=== PATIENT | female | born 1990 | race African-American/Black ===

== ENCOUNTER 2017-08-14 13:48 | Emergency (ER) | payer SELFPAY ==
[2017-08-14 14:03] VITALS: BP 128/65
[2017-08-14] MEDS ORDERED: PENICILLIN V POTASSIUM 500 MG TABLET PO ONE (14:57)
[2017-08-14] MEDS ORDERED: ACETAMINOPHEN WITH CODEINE #3 TABLET PO ONE (14:57)
--- NOTE | 2017-08-14 14:59 | ER Document Report ---
HPI - HPI Patient complains to provider of: Dental pain Onset: Other - 10 days Onset/Duration: Persistent Quality of pain: Achy Pain Level: 4 Context: Patient complains of dental pain for the past 10 days. Patient denies any fever or facial swelling. Associated Symptoms: Other - Dental pain. denies: Fever Exacerbated by: Denies Relieved by: Denies Similar symptoms previously: Yes Recently seen / treated by doctor: No - ROS ROS below otherwise negative: Yes Systems Reviewed and Negative: Yes All other systems reviewed and negative - CONSTITUTIONAL Constitutional: DENIES: Fever - EENT Notes: dental pain - NEURO Neurology: DENIES: Weakness - GASTROINTESTINAL Gastrointestinal: DENIES: Nausea, Patient vomiting - MUSCULOSKELETAL Musculoskeletal: DENIES: Neck Pain - DERM Skin Color: Normal Skin Problems: None Past Medical History - General Information source: Patient - Social History Smoking Status: Never Smoker Frequency of alcohol use: None Drug Abuse: None Occupation: for; to [employer] Family History: Reviewed & Not Pertinent - Medical History Medical History: Negative - Past Medical History Cardiac Medical History: Denies: Hx DVT, Hx Hypertension, Hx Pulmonary Embolism Pulmonary Medical History: Denies: Hx Asthma, Hx Bronchitis Neurological Medical History: Denies: Hx Cerebrovascular Accident, Hx Migraine Endocrine Medical History: Denies: Hx Diabetes Mellitus Type 1, Hx Hypothyroidism Renal/ Medical History: Denies: Hx Pelvic Inflammatory Disease, Hx Renal Insufficiency GI Medical History: Denies: Hx Gastritis, Hx Gastroesophageal Reflux Disease Musculoskeltal Medical History: Denies Hx Gout Skin Medical History: Denies Hx Cellulitis, Denies Hx MRSA Surgical Hx: Negative - Immunizations Hx Diphtheria, Pertussis, Tetanus Vaccination: Yes Vertical Provider Document - CONSTITUTIONAL Agree With Documented VS: Yes Exam Limitations: No Limitations General Appearance: WD/WN, No Apparent Distress - INFECTION CONTROL TRAVEL OUTSIDE OF THE [place] IN LAST 30 DAYS: No - HEENT HEENT: Atraumatic, Normocephalic Mouth Diagram: 1 - dental fracture, tenderness, no abscess, no trismus - NECK Neck: Normal Inspection, Supple. negative: Lymphadenopathy-Left, Lymphadenopathy-Right - RESPIRATORY Respiratory: Breath Sounds Normal, No Respiratory Distress O2 Sat by Pulse Oximetry: 100 - CARDIOVASCULAR Cardiovascular: Regular Rate, Regular Rhythm, No Murmur - BACK Back: Normal Inspection - MUSCULOSKELETAL/EXTREMETIES Musculoskeletal/Extremeties: MAEW - NEURO Level of Consciousness: Awake, Alert, Appropriate Motor/Sensory: No Motor Deficit - DERM Integumentary: Warm, Dry, No Rash Course - Vital Signs Vital signs: Temp Pulse Resp BP Pulse Ox 98.7 F 67 20 128/65 H 100 08/14/17 13:58 08/14/17 13:58 08/14/17 13:58 08/14/17 13:58 08/14/17 13:58 Discharge - Discharge Clinical Impression: Toothache Condition: Stable Disposition: HOME, SELF-CARE Instructions: Dentist, Oral Narcotic Medication ([facility]), Penicillin V K ([facility]), Toothache ([facility]) Additional Instructions: Return immediately for any new or worsening symptoms Followup with your dental care provider, call tomorrow to make a followup appointment Referrals: [facility] [Provider Group] - Follow up tomorrow
== END 2017-08-14 15:18 | disposition home or self-care (01) ==
LOC: ER 13:48
DX: K08.89 Other specified disorders of teeth and supporting structures (principal)
CPT/HCPCS: 99282

== ENCOUNTER 2017-12-31 00:33 | Emergency (ER) | payer SELFPAY ==
[2017-12-31 01:46] LABS: APPEARANCE,URINE CLEAR; BILIRUBIN,URINE NEGATIVE (NEGATIVE); COLOR,URINE STRAW; GLUCOSE, URINE NEGATIVE (NEGATIVE); KETONES,URINE NEGATIVE (NEGATIVE); LEUKOCYTE ESTERASE,URINE LARGE (NEGATIVE); NITRITE,URINE NEGATIVE (NEGATIVE); PROTEIN,URINE NEGATIVE (NEGATIVE); URINE SPECIFIC GRAVITY 1.003; UROBILINOGEN,URINE NEGATIVE mg/dL (<2.0)
[2017-12-31] MEDS ORDERED: AZITHROMYCIN 1 GM SUSP PACKET PO ONE (02:06)
[2017-12-31] MEDS ORDERED: ONDANSETRON 4 MG TAB.RAPDIS PO ONE (02:06)
[2017-12-31] MEDS ORDERED: CEFTRIAXONE INJ 250 MG VIAL IM ONE (02:07)
--- NOTE | 2017-12-31 02:12 | ER Document Report ---
ED General - General Chief Complaint: Vaginal Bleeding Stated Complaint: VAGINAL BLEEDING Time Seen by Provider: 12/31/17 02:05 Mode of Arrival: Ambulatory Information source: Patient Notes: 27-year-old female no reported past medical history presents with complaint of vaginal bleeding and vaginal discharge. Patient states that she is experienced intermittent vaginal bleeding during sex on 2 occasions. She states that the first time was 2 weeks ago. She states she noticed bleeding during sexual intercourse. She describes it as scant and without clots. She denies any rough sex or foreign body insertion. She states she had a recurrence of this 2 days ago. Patient also complaining of vaginal discharge that she states is malodorous started 4 days prior to arrival. She is sexually active with one partner but does not use any protection. She does have a history of trichomonas in the past which was treated. Last menstrual period was December 13, 2017. She denies fever, chills, nausea, vomiting, chest pain, shortness of breath, abdominal pain, dysuria, hematuria, back pain. TRAVEL OUTSIDE OF THE [place] IN LAST 30 DAYS: No - HPI Onset: Other Onset/Duration: Gradual Quality of pain: No pain Severity: None Associated symptoms: None Exacerbated by: Denies Relieved by: Denies Similar symptoms previously: No Recently seen / treated by doctor: No - Related Data Allergies/Adverse Reactions: No Known Drug Allergies Allergy (Verified 08/14/17 13:58) Past Medical History - General Information source: Patient - Social History Smoking Status: Never Smoker Chew tobacco use (# tins/day): No Frequency of alcohol use: None Drug Abuse: None Family History: Reviewed & Not Pertinent Patient has suicidal ideation: No Patient has homicidal ideation: No - Past Medical History Cardiac Medical History: Denies: Hx DVT, Hx Hypertension, Hx Pulmonary Embolism Pulmonary Medical History: Denies: Hx Asthma, Hx Bronchitis Neurological Medical History: Denies: Hx Cerebrovascular Accident, Hx Migraine Endocrine Medical History: Denies: Hx Diabetes Mellitus Type 1, Hx Hypothyroidism Renal/ Medical History: Reports: Other - Trichomonas. Denies: Hx Peritoneal Dialysis, Hx Pelvic Inflammatory Disease, Hx Renal Insufficiency GI Medical History: Denies: Hx Gastritis, Hx Gastroesophageal Reflux Disease Musculoskeltal Medical History: Denies Hx Gout Skin Medical History: Denies Hx Cellulitis, Denies Hx MRSA - Immunizations Hx Diphtheria, Pertussis, Tetanus Vaccination: Yes Review of Systems - Review of Systems Notes: She denies fever, chills, nausea, vomiting, chest pain, shortness of breath, abdominal pain, dysuria, hematuria, back pain. Physical Exam - Vital signs Vitals: Temp Pulse Resp BP Pulse Ox 98.5 F 74 18 121/65 100 12/31/17 00:48 12/31/17 00:48 12/31/17 00:48 12/31/17 00:48 12/31/17 00:48 Interpretation: Normal. No: Hypertensive, Hypoxic, Febrile Notes: PHYSICAL EXAMINATION: GENERAL: Well-appearing, well-nourished and in no acute distress. HEAD: Atraumatic, normocephalic. EYES: Pupils equal round and reactive to light, extraocular movements intact, conjunctiva are normal. ENT: Nares patent, oropharynx clear without exudates. Moist mucous membranes. NECK: Normal range of motion, supple without lymphadenopathy LUNGS: Breath sounds clear to auscultation bilaterally and equal. No wheezes rales or rhonchi. HEART: Regular rate and rhythm without murmurs ABDOMEN: Soft, nontender, nondistended abdomen. No guarding, no rebound. No masses appreciated. Female : No external vaginal lesions. Copious amounts of foul-smelling green yellow discharge. No cervical motion tenderness. Musculoskeletal: Normal range of motion, no pitting or edema. No cyanosis. NEUROLOGICAL: Cranial nerves grossly intact. Normal speech, normal gait. Normal sensory, motor exams PSYCH: Normal mood, normal affect. SKIN: Warm, Dry, normal turgor, no rashes or lesions noted. - General General appearance: Appears well, Alert In distress: None - HEENT Head: Normocephalic Conjunctiva: Normal Extraocular movements intact: Yes Pupils: PERRL - Respiratory Respiratory status: No respiratory distress Chest status: Nontender Breath sounds: Normal Chest palpation: Normal - Cardiovascular Rhythm: Regular. No: Tachycardia Heart sounds: Normal auscultation Murmur: No - Abdominal Inspection: Normal Distension: No distension Bowel sounds: Normal Tenderness: Nontender Organomegaly: No organomegaly - Genitourinary External exam: No: Lesions Speculum exam: Vaginal discharge, Other - copious amounts of yellow/green foul smelling discharge. Friable areas with scant blood and vaginal wall and cervic Vaginal bleeding: Mild Bimanuel exam: Normal. No: Cervical motion tender - Back Back: Normal, Nontender. No: CVA tenderness - Extremities General upper extremity: Normal inspection, Nontender, Normal color, Normal ROM , Normal temperature General lower extremity: Normal inspection, Nontender, Normal color, Normal ROM , Normal temperature, Normal weight bearing. No: Ryan's sign Course - Re-evaluation Re-evalutation: Laboratory 12/31/17 12/31/17 12/31/17 01:25 01:50 01:50 Urine Color STRAW Urine Appearance CLEAR Urine pH 6.0 Ur Specific [place] 1.003 Urine Protein NEGATIVE Urine Glucose (UA) NEGATIVE Urine Ketones NEGATIVE Urine Blood NEGATIVE Urine Nitrite NEGATIVE Urine Bilirubin NEGATIVE Urine Urobilinogen NEGATIVE Ur Leukocyte Esterase LARGE H Urine WBC (Auto) 15 Urine RBC (Auto) 3 Squamous Epi Cells Auto 2 Urine Mucus (Auto) RARE Urine Ascorbic Acid NEGATIVE Bacteria (Wet Prep) 3+ BACTERIA SEEN Trichomonas (Wet Prep) TRICHOMONAS SEEN Vaginal WBC 4+ WBCS SEEN Vaginal RBC RARE RBCS SEEN Vaginal Yeast NO YEAST SEEN Chlamydia DNA (PCR) NOT DETECTED N.gonorrhoeae DNA (PCR) NOT DETECTED 12/31/17 02:12 Advised patient that should be treated for gonorrhea and chlamydia based on her exam alone. She is agreeable with this. She was given azithromycin 1 g, Rocephin 250 mg IM, Zofran 4 mg p.o. Wet prep, gonorrhea and chlamydia pending. 12/31/17 03:09 Wet mount positive for trichomonas. Physical exam concerning for gonorrhea. Patient did receive a large amount of antibiotics during her ED course so we will start Flagyl tomorrow. I advised her no sexual activity until her partners treated and then 1 week after his treatment has been completed. She expresses understanding. Safe sex practices advised. 12/31/17 19:42 12/31/17 19:44 27-year-old female no reported past medical history presents with complaint of vaginal bleeding and vaginal discharge. Patient states that she is experienced intermittent vaginal bleeding during sex on 2 occasions. She states that the first time was 2 weeks ago. She states she noticed bleeding during sexual intercourse. She describes it as scant and without clots. She denies any rough sex or foreign body insertion. She states she had a recurrence of this 2 days ago. Patient also complaining of vaginal discharge that she states is malodorous started 4 days prior to arrival. VSS. EXam is significant for copious amounts of yellow/green discharge without CMT. No abdominal pain. Low suspicion for PID without fever or pain. Patient received rocephin, azithro, and zofran during ED course. Rx for Flagyl provided. Safe sex practices discussed. Patient expressed understanding and was discharged home. - Vital Signs Vital signs: Temp Pulse Resp BP Pulse Ox 98.4 F 81 17 112/65 98 12/31/17 03:23 12/31/17 03:23 12/31/17 03:23 12/31/17 03:23 12/31/17 03:23 - Laboratory Laboratory results interpreted by me: 12/31/17 01:25 Ur Leukocyte Esterase LARGE H Discharge - Discharge Clinical Impression: Trichomonas contact, Chlamydia, Gonorrhea UTI (urinary tract infection) Qualifiers: Urinary tract infection type: site unspecified Hematuria presence: without hematuria Qualified Code(s): N39.0 - Urinary tract infection, site not specified Condition: Good Disposition: HOME, SELF-CARE Instructions: Chlamydia ([facility]), Gonorrhea ([facility]), Trichomonas Infection ([facility]), Urinary Tract Infection ([facility]) Prescriptions: Metronidazole [Flagyl 500 mg Tablet] 500 mg PO BID #14 tablet
[2017-12-31 02:27] LABS: T.VAGINALIS (WET MOUNT) TRICHOMONAS SEEN; WBCS (WET MOUNT) 4+ WBCS SEEN; YEAST (WET MOUNT) NO YEAST SEEN
[2017-12-31 02:28] LABS: BACTERIA (WET MOUNT) 3+ BACTERIA SEEN; RBCS (WET MOUNT) RARE RBCS SEEN
[2017-12-31] MEDS ORDERED: LIDOCAINE 1% INJ (10 MG/ML) 10 ML MDV INJ ONE (02:30)
[2017-12-31 03:24] VITALS: BP 112/65
[2017-12-31 03:54] LABS: CHLAM PCR NOT DETECTED (NOT DETECT); GON PCR NOT DETECTED (NOT DETECT)
== END 2017-12-31 03:24 | disposition home or self-care (01) ==
LOC: ER 00:33
DX: A59.00 Urogenital trichomoniasis, unspecified (principal); A54.9 Gonococcal infection, unspecified; A74.9 Chlamydial infection, unspecified; N39.0 Urinary tract infection, site not specified; N93.9 Abnormal uterine and vaginal bleeding, unspecified
CPT/HCPCS: 99284; 96372; 87210; 81001; 87491; 87591; S0119; Q0144; J0696

== ENCOUNTER 2018-03-17 16:34 | Emergency (ER) | payer SELFPAY ==
--- NOTE | 2018-03-17 16:55 | ER Document Report ---
ED Medical Screen (RME) - General Chief Complaint: Vag Bleeding, +preg <12wks Stated Complaint: VAGINAL BLEEDING Time Seen by Provider: 03/17/18 16:51 Notes: Patient is a 27-year-old female, , 6 weeks by LMP, presents with a small amount of vaginal spotting that started last night. Her blood type is a positive. Denies heavy bleeding, urinary symptoms, abdominal pain or syncope. PE: NAD. Abdomen is soft and non-tender. I have greeted and performed a rapid initial assessment of this patient. A comprehensive ED assessment and evaluation of the patient, analysis of test results and completion of the medical decision making process will be conducted by additional ED providers. TRAVEL OUTSIDE OF THE [place] IN LAST 30 DAYS: No - Related Data Allergies/Adverse Reactions: No Known Drug Allergies Allergy (Verified 03/17/18 16:53) Past Medical History - General Last Menstrual Period: 02/01/2018 - Social History Chew tobacco use (# tins/day): No Frequency of alcohol use: None Drug Abuse: None - Past Medical History Cardiac Medical History: Denies: Hx DVT, Hx Hypertension, Hx Pulmonary Embolism Pulmonary Medical History: Denies: Hx Asthma, Hx Bronchitis Neurological Medical History: Denies: Hx Cerebrovascular Accident, Hx Migraine Endocrine Medical History: Denies: Hx Diabetes Mellitus Type 1, Hx Hypothyroidism Renal/ Medical History: Denies: Hx Peritoneal Dialysis, Hx Pelvic Inflammatory Disease, Hx Renal Insufficiency GI Medical History: Denies: Hx Gastritis, Hx Gastroesophageal Reflux Disease Musculoskeltal Medical History: Denies Hx Gout Skin Medical History: Denies Hx Cellulitis, Denies Hx MRSA - Immunizations Hx Diphtheria, Pertussis, Tetanus Vaccination: Yes Physical Exam - Vital signs Vitals: Temp Pulse Resp BP Pulse Ox 97.8 F 77 16 124/67 100 03/17/18 16:45 03/17/18 16:45 03/17/18 16:45 03/17/18 16:45 03/17/18 16:45 Course - Vital Signs Vital signs: Temp Pulse Resp BP Pulse Ox 97.8 F 77 16 124/67 100 03/17/18 16:45 03/17/18 16:45 03/17/18 16:45 03/17/18 16:45 03/17/18 16:45
[2018-03-17 17:44] LABS: APPEARANCE,URINE CLEAR; BILIRUBIN,URINE NEGATIVE (NEGATIVE); COLOR,URINE YELLOW; GLUCOSE, URINE NEGATIVE (NEGATIVE); KETONES,URINE NEGATIVE (NEGATIVE); LEUKOCYTE ESTERASE,URINE SMALL (NEGATIVE); NITRITE,URINE NEGATIVE (NEGATIVE); PROTEIN,URINE NEGATIVE (NEGATIVE); URINE SPECIFIC GRAVITY 1.008; UROBILINOGEN,URINE NEGATIVE mg/dL (<2.0)
--- NOTE | 2018-03-17 18:13 | RADIOLOGY REPORT (SQ) ---
EXAM DESCRIPTION: U/S OB TRANSVAGINAL W/O DOP COMPLETED DATE/TIME: 03/17/2018 5:51 pm REASON FOR STUDY: 6 weeks , bleeding COMPARISON: none TECHNIQUE: Transvaginal static and realtime grayscale images acquired of the pelvis. Additional nancie cted spectral and color Doppler images recorded. All images stored on PACs. bHCG: Not available CLINICAL DATES: 6 weeks 2 days LIMITATIONS: none FINDINGS: Twin Intra-uterine gestation TYPE OF TWIN: 2 gestational sacs are identified containing poles. TWIN A: ULTRASOUND EGA: 6 weeks 6 days ULTRASOUND AURA: 11/03/2018 CRL: 0.8 cm FHR: 123 bpm SUBCHORIONIC BLEED: No SIZE OF BLEED: Not applicable. TWIN B: ULTRASOUND EGA: 7 weeks ULTRASOUND AURA: 11/03/2018 CRL: 0.9 cm FHR: 122 bpm SUBCHORIONIC BLEED: No SIZE OF BLEED: Not applicable. UTERUS: No masses. No anomalies. CERVICAL LENGTH: 4.1 cm Closed. RIGHT ADNEXA: Right ovary was not visualized. No adnexal free fluid. No adnexal masses. LEFT ADNEXA: Left ovary was not visualized. No adnexal free fluid. No adnexal masses. FREE FLUID: None. OTHER: No other significant finding. IMPRESSION: LIVING TWIN INTRAUTERINE TWIN A EGA: 6 weeks 6 days TWIN B EGA: 7 weeks Trimester of : First - 0 to 13 weeks. TECHNICAL DOCUMENTATION: JOB ID: [id number] [employer]- All Rights Reserved rev Reading location - IP/workstation name: [email or web address]
--- NOTE | 2018-03-17 18:54 | ER Document Report ---
ED GI/ - General Chief Complaint: Vag Bleeding, +preg <12wks Stated Complaint: VAGINAL BLEEDING Time Seen by Provider: 03/17/18 16:51 Mode of Arrival: Ambulatory Information source: Patient TRAVEL OUTSIDE OF THE [place] IN LAST 30 DAYS: No - HPI Patient complains to provider of: Vaginal bleeding Notes: 03/17/18 18:52 Patient is here with complaints of vaginal bleeding. Patient is currently . with 2 previous miscarriages. She is approximately 7 weeks . In reviewing her records, she is noted to have a positive blood type. She states that today she has noticed a little bit of vaginal bleeding and wanted to come in to be evaluated. She states that the bleeding seems to have stopped. She denies any abdominal pain. No nausea, vomiting, diarrhea. No fever. No dysuria hematuria. No rash. No flank pain. She does report a small amount of vaginal discharge. No chest pain or shortness of breath. No other complaints at this time. - Related Data Allergies/Adverse Reactions: No Known Drug Allergies Allergy (Verified 03/17/18 16:53) Past Medical History - General Last Menstrual Period: 02/01/2018 - Social History Smoking Status: Never Smoker Chew tobacco use (# tins/day): No Frequency of alcohol use: None Drug Abuse: None Family History: Reviewed & Not Pertinent Patient has suicidal ideation: No Patient has homicidal ideation: No - Past Medical History Cardiac Medical History: Denies: Hx DVT, Hx Hypertension, Hx Pulmonary Embolism Pulmonary Medical History: Denies: Hx Asthma, Hx Bronchitis Neurological Medical History: Denies: Hx Cerebrovascular Accident, Hx Migraine Endocrine Medical History: Denies: Hx Diabetes Mellitus Type 1, Hx Hypothyroidism Renal/ Medical History: Denies: Hx Peritoneal Dialysis, Hx Pelvic Inflammatory Disease, Hx Renal Insufficiency GI Medical History: Denies: Hx Gastritis, Hx Gastroesophageal Reflux Disease Musculoskeltal Medical History: Denies Hx Gout Skin Medical History: Denies Hx Cellulitis, Denies Hx MRSA - Immunizations Hx Diphtheria, Pertussis, Tetanus Vaccination: Yes Review of Systems - Review of Systems -: Yes All other systems reviewed and negative Physical Exam - Vital signs Vitals: Temp Pulse Resp BP Pulse Ox 97.8 F 77 16 124/67 100 03/17/18 16:45 03/17/18 16:45 03/17/18 16:45 03/17/18 16:45 03/17/18 16:45 - Notes Notes: GENERAL: alert, cooperative, nontoxic, no distress. HEAD: normocephalic, atraumatic EYES: conjunctiva pink without discharge, no external redness or swelling. EARS: no external swelling, no external redness NOSE: atraumatic, no external swelling MOUTH/THROAT: mucous membranes moist and pink, posterior pharynx without erythema, swelling, exudate. No trismus or drooling. NECK: soft, supple, full range of motion, no meningismus. CHEST: no distress, lungs clear and equal throughout. No wheezing, rales, rhonchi. CARDIAC: regular rate and rhythm, no murmur, normal capillary refill, normal pulses. No peripheral edema noted. ABDOMEN: Soft, nontender. No rebound tenderness or guarding. No mass. BACK: full range of motion, no CVA tenderness. EXTREMITIES: full range of motion of all extremities. No redness, no swelling. NEURO: alert and oriented x 3, no focal deficits, full range of motion of all extremities. PYSCH: appropriate mood, affect. Patient is cooperative. SKIN: pink, warm, dry, no rash. : Performed with female window framer at the bedside. No external lesions. Cervix is closed. No bleeding. Moderate amount of green drainage noted from the cervical loss. No cervical motion tenderness, no adnexal tenderness or masses on bimanual exam. Course - Re-evaluation Re-evalutation: 03/17/18 20:16 Patient is nontoxic-appearing with stable vitals. The patient is here with complaints of vaginal bleeding. She is approximately 7 weeks . She denies any abdominal pain. She has had no fever. No nausea, vomiting, diarrhea. No dysuria hematuria. States that she noticed a little bit of vaginal bleeding earlier today, but the bleeding has stopped. No fevers. On exam she was noted to have a large amount of green vaginal discharge. No cervical motion tenderness or pelvic tenderness on exam. Urinalysis shows no obvious signs of infection. Wet prep is positive for trichomonas. GC chlamydia cultures are currently pending at this time. Due to the fact that she has trichomonas, I have prophylactically treated her with Rocephin and Zithromax. I discussed the case with Dr. Little, LINER ROLL CHANGER. He recommends no Flagyl treatment for the trichomonas until she has entered her second trimester. I discussed this with the patient. I instructed her to let her OB/ DATA INPUT CLERK no that she was positive so that they can treat her appropriately when she enters the second trimester. She was instructed to contact her partner and let them know that she is positive for trichomonas and to avoid any sexual intercourse until she and him have both been treated. She instructed to follow- up sooner for worsening pain, fever, severe bleeding, persistent vomiting, or for any further concerns. The patient is noted to have elevated blood pressure during today's emergency department visit. The patient was informed of this finding. The patient was instructed that this may be related to pre-hypertension and requires further evaluation with a primary care provider. The patient has no hypertensive symptoms at this time. The patient's emergency department workup and current diagnosis were explained to the patient and or family. Follow-up instructions were provided. Medications if prescribed were discussed. Instructions for when to return to the emergency department including specific worrisome symptoms were discussed with the patient and/or family. - Vital Signs Vital signs: Temp Pulse Resp BP Pulse Ox 97.8 F 77 16 124/67 100 03/17/18 16:45 03/17/18 16:45 03/17/18 16:45 03/17/18 16:45 03/17/18 16:45 - Laboratory Laboratory results interpreted by me: 03/17/18 03/17/18 17:25 17:56 Beta HCG, Quant 865391.00 H Ur Leukocyte Esterase SMALL H - Diagnostic Test Radiology reviewed: Image reviewed, Reports reviewed - OB ultrasound showing twin 1 measuring 6 weeks 6 days the other 7 weeks. No acute abnormality. Discharge - Discharge Clinical Impression: Vaginal bleeding during , Trichomonas infection Qualifiers: Weeks of gestation: less than 8 weeks Qualified Code(s): Z3A.01 - Less than 8 weeks gestation of Condition: Stable Disposition: HOME, SELF-CARE Instructions: Trichomonas Infection ([facility]), Bleeding During Early ([facility] ) Additional Instructions: Follow-up with your LINER ROLL CHANGER at the next available appointment. You were diagnosed with trichomonas today. Due to the fact that you are still in your first trimester, it is not recommended to treat with Flagyl until you have reached her second trimester. Be sure to discuss this with her LINER ROLL CHANGER so that they can treat you appropriately when you enter your second trimester. Light your partner know that you are positive for trichomonas and be sure that they are treated. He should avoid sexual intercourse until both of you have been treated. Follow-up sooner for worsening pain, fever, severe heavy bleeding, high fevers, persistent vomiting, or for any further concerns. Your blood pressure was elevated during today's visit. Have this rechecked with your doctor. Forms: Elevated Blood Pressure Referrals: SHASHANK LITTLE MD [ACTIVE STAFF] - Follow up as needed
[2018-03-17] MEDS ORDERED: CEFTRIAXONE INJ 250 MG VIAL IM ONE (19:39)
[2018-03-17] MEDS ORDERED: AZITHROMYCIN 250 MG TABLET PO ONE (19:39)
[2018-03-17 20:01] LABS: BACTERIA (WET MOUNT) 3+ BACTERIA SEEN; RBCS (WET MOUNT) RARE RBCS SEEN; T.VAGINALIS (WET MOUNT) TRICHOMONAS SEEN; WBCS (WET MOUNT) 4+ WBCS SEEN; YEAST (WET MOUNT) NO YEAST SEEN
[2018-03-17 20:33] VITALS: BP 106/58
[2018-03-17 21:27] LABS: CHLAM PCR NOT DETECTED (NOT DETECT); GON PCR NOT DETECTED (NOT DETECT)
== END 2018-03-17 20:51 | disposition home or self-care (01) ==
LOC: ER 16:34
DX: O20.9 Hemorrhage in early pregnancy, unspecified (principal); A59.00 Urogenital trichomoniasis, unspecified; O98.811 Other maternal infectious and parasitic diseases complicating pregnancy, first trimester; O30.001 Twin pregnancy, unspecified number of placenta and unspecified number of amniotic sacs, first trimester; O26.891 Other specified pregnancy related conditions, first trimester; R03.0 Elevated blood-pressure reading, without diagnosis of hypertension; Z3A.01 Less than 8 weeks gestation of pregnancy; Z87.59 Personal history of other complications of pregnancy, childbirth and the puerperium
CPT/HCPCS: 99284; 96372; 36415; 87210; 84702; 81001; 87491; 87591; 76817; J0696

== ENCOUNTER 2018-07-05 13:59 | Outpatient (CLI) | payer MEDICAID ==
[2018-07-05] MEDS ORDERED: HYDROXYZINE PAMOATE 50 MG CAPSULE PO ONE (14:28)
[2018-07-05] MEDS ORDERED: HYDROXYZINE PAMOATE 50 MG CAPSULE ONE (14:42)
[2018-07-05 15:17] LABS: URINE AMPHETAMINES SCREEN NEGATIVE; URINE BARBITURATES SCREEN NEGATIVE; URINE BENZODIAZEPINES SCREEN NEGATIVE; URINE COCAINE SCREEN NEGATIVE; URINE MARIJUANA (THC) SCREEN NEGATIVE; URINE METHADONE SCREEN NEGATIVE; URINE PHENCYCLIDINE SCREEN NEGATIVE
[2018-07-05 15:46] LABS: ABSOLUTE EOSINOPHILS # (AUTO) 0.1 10^3/uL (0.0-0.6); ABSOLUTE LYMPHOCYTES (AUTO) 1.6 10^3/uL (0.5-4.7); ABSOLUTE MONOCYTES (AUTO) 0.6 10^3/uL (0.1-1.4); ABSOLUTE NEUT (AUTO) 5.8 10^3/uL (1.7-8.2); BASOPHILS % (AUTO) 0.4 % (0-2); EOSINOPHILS % (AUTO) 0.8 % (0-6); HEMATOCRIT 26.2 % (36.0-47.0); HEMOGLOBIN 8.7 g/dL (12.0-15.5); LYMPHOCYTES % (AUTO) 19.7 % (13-45); MEAN CORPUSCULAR HEMOGLOBIN 27.1 pg (27.0-33.4); MEAN CORPUSCULAR HGB CONC 33.2 g/dL (32.0-36.0); MEAN CORPUSCULAR VOLUME 82 fl (80-97); MONOCYTES % (AUTO) 7.6 % (3-13); PLATELET COUNT 257 10^3/uL (150-450); RED BLOOD COUNT 3.21 10^6/uL (3.72-5.28); RED CELL DISTRIBUTION WIDTH 16.7 % (11.5-14.0); SEGMENTED NEUTROPHILS % (AUTO) 71.5 % (42-78); TOTAL CELLS COUNTED % (AUTO) 100 %; WHITE BLOOD COUNT 8.2 10^3/uL (4.0-10.5)
[2018-07-05 16:07] LABS: ALANINE AMINOTRANSFERASE 20 U/L (9-52); ALBUMIN 2.9 g/dL (3.5-5.0); ALKALINE PHOSPHATASE 88 U/L (38-126); ANION GAP 7 (5-19); ASPARTATE AMINO TRANSFERASE 19 U/L (14-36); BILIRUBIN,DIRECT 0.4 mg/dL (0.0-0.4); BILIRUBIN,TOTAL 0.4 mg/dL (0.2-1.3); BLOOD UREA NITROGEN 8 mg/dL (7-20); CALCIUM 9.1 mg/dL (8.4-10.2); CARBON DIOXIDE 23 mmol/L (22-30); CHLORIDE 104 mmol/L (98-107); GLUCOSE 97 mg/dL (75-110); POTASSIUM 3.6 mmol/L (3.6-5.0); SODIUM 134.3 mmol/L (137-145); TOTAL PROTEIN 5.8 g/dL (6.3-8.2)
[2018-07-05 16:09] LABS: COLOR,URINE YELLOW
[2018-07-05 16:10] LABS: APPEARANCE,URINE CLEAR; BILIRUBIN,URINE NEGATIVE (NEGATIVE); GLUCOSE, URINE NEGATIVE (NEGATIVE); KETONES,URINE NEGATIVE (NEGATIVE); PROTEIN,URINE NEGATIVE (NEGATIVE)
[2018-07-05 16:11] LABS: ADD MANUAL MICROSCOPIC YES; LEUKOCYTE ESTERASE,URINE NEGATIVE (NEGATIVE); NITRITE,URINE NEGATIVE (NEGATIVE)
[2018-07-05 16:12] LABS: AMORPHOUS SEDIMENT,UR TRACE
--- NOTE | 2018-07-05 16:47 | L&D Progress Notes ---
PROGRESS NOTES Datetime Report Generated by CPN: 07/05/2018 16:47 PROGRESS NOTE Impression Other: IUP 22 wks w/ Twins, IUFD of Twin A Procedures: Sterile Speculum Exam; Ultrasound Plan Other: Pt has MFM ultrasound on Thursday Vital Signs : Reviewed; Within Normal Limits Comment: Pt presented via the ER w c/o pelvic pressure and feeling faint at work. 22 wks with Di/Di twins. 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 Diagnosed today with an IUFD, confirmed on ultrasound by Dr Little. Twin B +cardiac activity, good movement. Cervical length done via u/s and measures 2.2 cm long. Please refer to labwork and urinalysis done today. Negative UDS, Urinalysis is wnl. Pts Hgb 8.7 and taking Iron Supplements. VSS. Pt states she did feel better after taking a Vistaril here on L_D. Discussed plan with Dr Little. Will d/c home, pt to f/u with MFM on . Increase iron rich foods in diet. VAGINAL EXAM Dilatation: 0 Effacement: 2.2 cm Station: -2 Contractions: irritability MEMBRANES Membranes: Intact SIGNATURE SIGNATURE: [id number] Assignment: Shirin Little MD Signature: with User ID: Barry : with User ID: [email or web address]
--- NOTE | 2018-07-05 17:41 | RADIOLOGY REPORT (SQ) ---
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 Additional selected color Doppler and spectral images recorded. All stored on PACS. LIMITATIONS: None. FINDINGS: FETUSES SEEN:2 Twin A shows no heart tones consistent with demise, vertex posi tioning. Twin B EGA: 22 weeks 3 days Calculated using BPD,FL,HC,AC documented on images. No discrepancy with clinica l dates. AURA: 11/05/2018 EFW: 516 grams PERCENTILE: 47 LVP: 8.2 cm PLACENTA: Anterior PRESENTATION: Breech HEART RATE: 171 beats per minute. MATERNAL ADNEXA: Maternal ovaries not visualized. CERVICAL LENGTH: 2.2 cm Closed. OTHER: No other significant finding. IMPRESSION: Twin A shows no heart tones consistent with demise, vertex positioning. Twin B EGA: 22 weeks 3 days Calculated using BPD,FL,HC,AC documented on images. No discrepancy with clinical dates. AURA: 11/05/2018 EFW: 516 grams PERCENTILE: 47 LVP: 8.2 cm PLACENTA: Anterior PRESENTATION: Breech HEART RATE: 171 beats per minute. CERVICAL LENGTH: 2.2 cm Closed. Trimester of : Second trimester - 13 weeks 1 day to 27 weeks 6 days. TECHNICAL DOCUMENTATION: JOB ID: [id number] 2010 [employer]- All Rights Reserved Reading location - IP/workstation name: [email or web address]
--- NOTE | 2018-07-06 14:46 | RADIOLOGY REPORT (SQ) ---
EXAM DESCRIPTION: U/S [id number] + EACH ADDIT GEST COMPLETE DATE/TIME: 07/05/2018 5:16 pm REASON FOR STUDY: DEMISE IN TWIN GESTATION FINDINGS: Please see combined report for performance of procedure and radiologic supervision and int erpretation. IMPRESSION: Please see combined report for performance of procedure and radiologic supervision and i nterpretation. Reading location - IP/workstation name: [email or web address]
== END 2018-07-05 17:30 | disposition home or self-care (01) ==
LOC: LC 13:59
PROVIDERS: ATTEND Obstetrics & Gynecology
PROC: 4A1HXCZ Monitoring of Products of Conception, Cardiac Rate, External Approach (ICD-10-PCS; principal; 2018-07-05)
DX: O36.4XX1 Maternal care for intrauterine death, fetus 1 (principal); O30.042 Twin pregnancy, dichorionic/diamniotic, second trimester; O99.282 Endocrine, nutritional and metabolic diseases complicating pregnancy, second trimester; E86.0 Dehydration; Z3A.22 22 weeks gestation of pregnancy
CPT/HCPCS: 59899; 36415; 85025; 80053; 81001; 80307; 76805; 76810; J3490

== ENCOUNTER → 2018-08-14 | Outpatient (CLI) | payer MEDICAID ==
[~2018-08-14] MED LIST: BETAMET ACET/BETAMET NA INJ 6 MG/1 ML IM ONE; BETAMET ACET/BETAMET NA INJ 6 MG/1 ML ONE; MAGNESIUM SULFATE 20 GM/500 ML RTUINJ IV ONE; MAGNESIUM SULFATE 4 GM/100 ML RTUPB IV ONE; PENICILLIN G POTASSIUM 2,500,000 UNIT in DEXTROSE 5%-WATER 50 ML IV SCH; PENICILLIN G POTASSIUM 5,000,000 UNIT in DEXTROSE 5%-WATER 100 ML IV ONE; PENICILLIN G-K 5 MILLION UNIT VIAL ONE; RINGERS SOLUTION,LACTATED 1,000 ML IV PRN
[2018-08-14 01:53] LABS: BACTERIA (WET MOUNT) 4+ BACTERIA SEEN; RBCS (WET MOUNT) NO RBCS SEEN; T.VAGINALIS (WET MOUNT) NO TRICHOMONAS SEEN; WBCS (WET MOUNT) 3+ WBCS SEEN; YEAST (WET MOUNT) NO YEAST SEEN
[2018-08-14 02:00] LABS: APPEARANCE,URINE CLEAR; BILIRUBIN,URINE NEGATIVE (NEGATIVE); COLOR,URINE YELLOW; GLUCOSE, URINE NEGATIVE (NEGATIVE); KETONES,URINE NEGATIVE (NEGATIVE); LEUKOCYTE ESTERASE,URINE NEGATIVE (NEGATIVE); NITRITE,URINE NEGATIVE (NEGATIVE); PROTEIN,URINE NEGATIVE (NEGATIVE); URINE SPECIFIC GRAVITY 1.006; UROBILINOGEN,URINE NEGATIVE mg/dL (<2.0)
[2018-08-14 02:16] LABS: URINE AMPHETAMINES SCREEN NEGATIVE; URINE BARBITURATES SCREEN NEGATIVE; URINE BENZODIAZEPINES SCREEN NEGATIVE; URINE COCAINE SCREEN NEGATIVE; URINE MARIJUANA (THC) SCREEN NEGATIVE; URINE METHADONE SCREEN NEGATIVE; URINE PHENCYCLIDINE SCREEN NEGATIVE
--- NOTE | 2018-08-14 03:25 | RADIOLOGY REPORT (SQ) ---
EXAM DESCRIPTION: US LIMITED COMPLETED DATE/TME: 08/14/2018 00:00 CLINICAL HISTORY: 28 years, Female, twins, sera, efw, placental well being, well COMPARISON: 07/05/2018 ultrasound TECHNIQUE: Limited second/third trimester ultrasound LIMITATIONS: None. FINDINGS: Twin intrauterine gestation. There is a known history of demise for baby A. No detectable heart tones for baby A. Heart tones are present for baby B at 144 bpm. Amniotic fluid index is 13.4 cm. Cervical length is 3.7 cm. The placenta is posterior in location. There is suggestion of cervical funneling with some echogenic debris/fluid at the level of the cervical os. Current ultrasound age for baby B is 27 weeks 5 days. IMPRESSION: There is known demise of baby a. Baby B heart tones obtained at 144 bpm. Current ultrasound age for baby B is 27 weeks 5 days. Cervical length is 3.7 cm. There is some suggestion of cervical funneling with some echogenic debris near the cervical os. Close obstetric follow-up recommended. 2010 [employer]- All Rights Reserved
[2018-08-14 04:16] LABS: ABSOLUTE BASOPHILS # (AUTO) 0.1 10^3/uL (0.0-0.2); ABSOLUTE EOSINOPHILS # (AUTO) 0.2 10^3/uL (0.0-0.6); ABSOLUTE LYMPHOCYTES (AUTO) 2.1 10^3/uL (0.5-4.7); ABSOLUTE MONOCYTES (AUTO) 0.9 10^3/uL (0.1-1.4); ABSOLUTE NEUT (AUTO) 5.8 10^3/uL (1.7-8.2); HEMATOCRIT 28.1 % (36.0-47.0); HEMOGLOBIN 9.2 g/dL (12.0-15.5); MEAN CORPUSCULAR HEMOGLOBIN 26.6 pg (27.0-33.4); MEAN CORPUSCULAR HGB CONC 32.8 g/dL (32.0-36.0); MEAN CORPUSCULAR VOLUME 81 fl (80-97); MONOCYTES % (AUTO) 9.9 % (3-13); PLATELET COUNT 297 10^3/uL (150-450); RED BLOOD COUNT 3.46 10^6/uL (3.72-5.28); RED CELL DISTRIBUTION WIDTH 17.2 % (11.5-14.0); SEGMENTED NEUTROPHILS % (AUTO) 64.1 % (42-78); TOTAL CELLS COUNTED % (AUTO) 100 %
== END ==
LOC: LC 00:52 → EDSTATUS 01:48 → LC 01:48
PROVIDERS: ATTEND Obstetrics & Gynecology Gynecology
PROC: 4A1HXCZ Monitoring of Products of Conception, Cardiac Rate, External Approach (ICD-10-PCS; principal; 2018-08-14)
DX: O36.4XX1 Maternal care for intrauterine death, fetus 1 (principal); O30.002 Twin pregnancy, unspecified number of placenta and unspecified number of amniotic sacs, second trimester; Z3A.27 27 weeks gestation of pregnancy
CPT/HCPCS: 59899; 94760; 96372; 36415; 87210; 85025; 81001; 80307; 76815; Q0114; J3475 ×2; J2540; J0702

== ENCOUNTER 2018-09-05 17:14 | Outpatient (CLI) | payer MEDICAID ==
[2018-09-05 17:44] LABS: APPEARANCE,URINE SLIGHTLY-CLOUDY; BILIRUBIN,URINE NEGATIVE (NEGATIVE); COLOR,URINE YELLOW; GLUCOSE, URINE NEGATIVE (NEGATIVE); KETONES,URINE 20 mg/dL (NEGATIVE); LEUKOCYTE ESTERASE,URINE MODERATE (NEGATIVE); NITRITE,URINE NEGATIVE (NEGATIVE); PROTEIN,URINE NEGATIVE (NEGATIVE); URINE SPECIFIC GRAVITY 1.016
[2018-09-05 17:57] LABS: URINE AMPHETAMINES SCREEN NEGATIVE; URINE BARBITURATES SCREEN NEGATIVE; URINE BENZODIAZEPINES SCREEN NEGATIVE; URINE COCAINE SCREEN NEGATIVE; URINE MARIJUANA (THC) SCREEN NEGATIVE; URINE METHADONE SCREEN NEGATIVE; URINE PHENCYCLIDINE SCREEN NEGATIVE
[2018-09-05 18:31] LABS: BACTERIA (WET MOUNT) 3+ BACTERIA SEEN; EPITHELIALS (WET MOUNT) 3+ EPITHELIALS SEEN; RBCS (WET MOUNT) FEW RBCS SEEN; T.VAGINALIS (WET MOUNT) NO TRICHOMONAS SEEN; WBCS (WET MOUNT) 3+ WBCS SEEN; YEAST (WET MOUNT) NO YEAST SEEN
--- NOTE | 2018-09-05 19:02 | RADIOLOGY REPORT (SQ) ---
EXAM DESCRIPTION: U/S OB LIMITED COMPLETED DATE/TIME: 09/05/2018 6:51 pm REASON FOR STUDY: vaginal discharge, mild ctx COMPARISON: None. TECHNIQUE: Limited transvaginal grayscale ultrasound for evaluation of specific requested obstetrica l parameters. LIMITATIONS: None. FINDINGS: CERVICAL LENGTH: 4.3 cm Closed. ROYAL: 12.7 cm. FHR: 157 beats per minute. PRESENTATION: Cephalic. PLACENTA: Anterior ANATOMY: Not assessed OTHER: No other significant findings. IMPRESSION: LIMITED OBSTETRICAL ULTRASOUND WITH MEASURED PARAMETERS DELINEATED ABOVE. Trimester of : Third trimester - 28 weeks to delivery. TECHNICAL DOCUMENTATION: JOB ID: [id number] [employer]- All Rights Reserved Reading location - IP/workstation name: [email or web address]
[2018-09-05 20:03] LABS: CHLAM PCR NOT DETECTED (NOT DETECT); GON PCR NOT DETECTED (NOT DETECT)
== END 2018-09-05 20:26 | disposition home or self-care (01) ==
LOC: LC 17:14
PROVIDERS: ATTEND Student in an Organized Health Care Education/Training Program
DX: O26.893 Other specified pregnancy related conditions, third trimester (principal); N89.8 Other specified noninflammatory disorders of vagina; Z3A.28 28 weeks gestation of pregnancy
CPT/HCPCS: 76815; 80307; 81001; 84112; 87210; 87491; 87591

== ENCOUNTER 2018-09-15 22:20 | Inpatient (IN) | payer MEDICAID ==
[2018-09-15 22:46] LABS: APPEARANCE,URINE CLEAR; BILIRUBIN,URINE NEGATIVE (NEGATIVE); COLOR,URINE YELLOW; GLUCOSE, URINE NEGATIVE (NEGATIVE); KETONES,URINE NEGATIVE (NEGATIVE); LEUKOCYTE ESTERASE,URINE TRACE (NEGATIVE); NITRITE,URINE NEGATIVE (NEGATIVE); PROTEIN,URINE NEGATIVE (NEGATIVE); URINE SPECIFIC GRAVITY 1.006; UROBILINOGEN,URINE NEGATIVE mg/dL (<2.0)
[2018-09-15 23:00] LABS: URINE AMPHETAMINES SCREEN NEGATIVE; URINE BARBITURATES SCREEN NEGATIVE; URINE BENZODIAZEPINES SCREEN NEGATIVE; URINE COCAINE SCREEN NEGATIVE; URINE MARIJUANA (THC) SCREEN NEGATIVE; URINE METHADONE SCREEN NEGATIVE; URINE PHENCYCLIDINE SCREEN NEGATIVE
[2018-09-15] MEDS ORDERED: TERBUTALINE SULFATE INJ/PF 1 MG/1 ML SDV ONE (23:26)
[2018-09-15] MEDS ORDERED: TERBUTALINE SULFATE INJ/PF 1 MG/1 ML SDV SUBCUT ONE (23:45)
--- NOTE | 2018-09-16 02:15 | Admission Physical ---
Datetime Report Generated by CPN: 09/16/2018 02:15 CURRENT ADMISSION Chief Complaint: Uterine Contractions Indication for Induction: Not Applicable Admit Impression : , Intrauterine ; Intact Membranes Admit Plan: Admit to Unit; Observation/Evaluation ALLERGIES Medication Allergies: No Medication Allergies: No Known Drug Allergies (09/15/2018) Latex: No Latex Allergies OBSTETRICAL HISTORY EDC: 11/08/2018 00:00 : 6 Para: 4 Term: 2 : 2 SAB: 1 IAB: 1 Ectopic: 0 Livin Cesareans: 0 VBACs: 0 Multiple Births: 0 Gestational Diabetes: No Rh Sensitization: No Incompetent Cervix: No CHRIS: No Infertility: No ART Treatment: No Uterine Anomaly: No IUGR: No Hx Previous C/S: No Macrosomia: No Hx Loss/Stillborn: No PIH: No Hx : No Placenta Previa/Abruption: No Depression/PP Depression: No PTL/PROM: No Post Hemorrhage: No Current Procedures: Ultrasound; NST; CVS Obstetrical History Comments: G1 - 36 weeks, , PROM G2 - TERM, , IOL G3 - EAB, D_C G4 - TERM G5 - SAB G6 - CURRENT, DI DI TWINS, 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 [id number] MEDICAL HISTORY Diabetes: No Blood Transfusion: No Pulmonary Disease (Asthma, TB): No Breast Disease: No Hypertension: No Loan Teller Surgery: No Heart Disease: No Hosp/Surgery: No Autoimmune Disorder: No Anesthetic Complications: No Kidney Disease: No Abnormal Pap Smear: No Neuro/Epilepsy: No Psychiatric Disorders: No Other Medical Diseases: No Hepatitis/Liver Disease: No Significant Family History: No Varicosities/Phlebitis: No Trauma/Violence : No Thyroid Dysfunction: No INFECTIOUS HISTORY Gonorrhea: No Genital Herpes: No Chlamydia: No Tuberculosis: No Syphilis: No Hepatitis: No HIV/AIDS Exposure: No Rash or Viral Illness: No HPV: No Infectious History Comments: HX TRICH THIS PHYSICAL EXAM General: Normal HEENT: Normal Neurologic: Normal Thyroid: Normal Heart: Normal Lungs: Normal Breast: Deferred Back: Normal Abdomen: Normal Genitourinary Exam: Normal Extremities: Normal DTRs: Normal Pelvic Type: Adequate Vital Signs: Reviewed VAGINAL EXAM Dilatation: 3 Effacement: 2.2 cm Station: -2 Contraction Comments: irritability MEMBRANES Pooling: Negative Membranes: Intact FETUS A EGA: 22.0 Monitoring: External US FHR- Baseline: 140 Decelerations: None FHR Category: Category I Presentation: Vertex Admit Comment: admit repeat steroid shot , Mg SO4 FETUS B Monitoring: External US INFORMED CONSENT Signature: with User ID: [email or web address]
[2018-09-16] MEDS ORDERED: PENICILLIN G-K 5 MILLION UNIT VIAL ONE (02:17)
[2018-09-16] MEDS ORDERED: BETAMET ACET/BETAMET NA INJ 6 MG/1 ML ONE (02:20)
[2018-09-16] MEDS ORDERED: AMPICILLIN SOD INJ 2 GM VIAL ONE (02:27)
[2018-09-16] MEDS ORDERED: AMPICILLIN SOD INJ 2 GM VIAL IV PRN (02:33)
[2018-09-16] MEDS ORDERED: MAGNESIUM SULFATE 4 GM/100 ML RTUPB IV ONE ×3 (02:33→02:40)
[2018-09-16] MEDS ORDERED: MAGNESIUM SULFATE 20 GM/500 ML RTUINJ IV ONE ×3 (02:34→23:14)
[2018-09-16] MEDS: MAGNESIUM SULFATE 20 GM/500 ML RTUINJ IV PRN ×3 (02:39→23:17)
[2018-09-16] MEDS ORDERED: AMPICILLIN SODIUM 2 GM in NORMAL SALINE 100 ML IV ONE (02:40)
[2018-09-16] MEDS ORDERED: BETAMET ACET/BETAMET NA INJ 6 MG/1 ML IM ONE (02:40)
[2018-09-16 02:49] LABS: ABSOLUTE BASOPHILS # (AUTO) 0.1 10^3/uL (0.0-0.2); ABSOLUTE EOSINOPHILS # (AUTO) 0.1 10^3/uL (0.0-0.6); ABSOLUTE MONOCYTES (AUTO) 1.1 10^3/uL (0.1-1.4); BASOPHILS % (AUTO) 0.5 % (0-2); EOSINOPHILS % (AUTO) 0.4 % (0-6); HEMATOCRIT 31.3 % (36.0-47.0); HEMOGLOBIN 10.1 g/dL (12.0-15.5); LYMPHOCYTES % (AUTO) 16.3 % (13-45); MEAN CORPUSCULAR HEMOGLOBIN 26.4 pg (27.0-33.4); MEAN CORPUSCULAR HGB CONC 32.4 g/dL (32.0-36.0); MEAN CORPUSCULAR VOLUME 82 fl (80-97); MONOCYTES % (AUTO) 9.4 % (3-13); PLATELET COUNT 255 10^3/uL (150-450); RED BLOOD COUNT 3.85 10^6/uL (3.72-5.28); RED CELL DISTRIBUTION WIDTH 19.5 % (11.5-14.0); SEGMENTED NEUTROPHILS % (AUTO) 73.4 % (42-78); TOTAL CELLS COUNTED % (AUTO) 100 %; WHITE BLOOD COUNT 12.3 10^3/uL (4.0-10.5)
--- NOTE | 2018-09-16 02:50 | RADIOLOGY REPORT (SQ) ---
EXAM DESCRIPTION: US LIMITED COMPLETED DATE/TME: 09/15/2018 00:00 CLINICAL HISTORY: 28 years Female, cervical length contractions clinical estimated gestational age 32 weeks Comparison:09/05/2018 TECHNIQUE/LIMITATION: Targeted OB sonogram for requested parameters only. FINDINGS: Cardiac activity: 162-bpm. ROYAL: 14.5-cm Placenta: Posterior. No evidence of abruption. No placenta previa. Presentation: Vertex Cervical length: 2.4-cm. Funneling. [prior 4.3-cm length, prior:closed, 09/05/18] IMPRESSION: 1. Interval decrease in cervical length now measures 2.4-cm. Interval funneling. Differential etiologies include cervical incompetence and labor. OB consultation advised. 2. Targeted OB sonogram for requested parameters
--- NOTE | 2018-09-16 03:36 | Non Stress Test Report ---
Non Stress Test Datetime Report Generated by CPN: 09/16/2018 03:36 DEMOGRAPHIC Test Number: 1 EGA NST: 32.2 INDICATION Indication for Study: Other Indication for Study (NST) Other: Labor Check - Contractions VITAL SIGNS Temperature - NST: 99.2 Pulse - NST: 91 RESP - NST: 14 NBPSYS NST: 114 NBPDIA NST: 64 URINE RESULTS Urine Protein, NST: Negative Urine Ketones - NST: Negative Urine Glucose - NST: Negative Urine Blood - NST: Negative MONITORING Monitor Explained: Monitor Explained; Test Explained; Patient Verbalized Understanding Time on Monitor: 09/15/2018 22:41 Time off Monitor: 09/16/2018 00:30 NST Duration: 109 NST INTERVENTIONS NST Interventions: None; Reposition Patient Physician Notified NST: Dr. Little BABY A: [id number] BABY A Movement : Present Contraction Frequency : Irregular FHR Baseline : 145 Accelerations : 15X15 Decelerations : None Variability : Moderate 6-25bpm NST Review: Meets Criteria for Reactive NST NST Review and Verified By : NDoyle RN NST Results: Reactive NST REPORT Report Trigger: Send Report
[2018-09-16] MEDS ORDERED: AMPICILLIN SOD INJ 2 GM VIAL IV SCH (09:00)
[2018-09-16] MEDS ORDERED: AMPICILLIN SOD INJ 1 GM VIAL ONE ×3 (09:11→21:02)
[2018-09-16] MEDS ORDERED: AMPICILLIN SOD INJ 2 GM VIAL IM SCH (09:30)
[2018-09-16] MEDS: AMPICILLIN SOD INJ 1 GM VIAL IV SCH ×2 (15:11→21:10)
[2018-09-16] MEDS ORDERED: RINGERS SOLUTION,LACTATED 1,000 ML IV PRN (15:15)
[2018-09-16] MEDS ORDERED: ACETAMINOPHEN 325 MG TABLET ONE (19:22)
--- NOTE | 2018-09-16 21:36 | L&D Progress Notes ---
PROGRESS NOTES Datetime Report Generated by CPN: 09/16/2018 21:35 PROGRESS NOTE Impression: Reactive Non Stress Test; Labor Procedures- Other: Magnesium sulfate Plan: Continue Present Management Vital Signs : Reviewed; Within Normal Limits Comment: Pt has been comfortable all day. Intermittent runs of contractions. No complaints. Will discontinue Magnesium Sulfate in the a.m. LAST VAGINAL EXAM-NURSING Dilitation: 3.0 Dilitation: 3.5 Effacement: 70 Effacement: 70 Station: -2 Station: -2 Contractions: Pt denies feeling ctx's Contractions: Pt denies feeling ctx's Contractions: Irregular Contractions: Pt denies feeling ctx's. Contractions: pt denies Contractions: pt denies Contractions: irritability noted Contractions: uterine irritability Contractions: Unable to determine d/t ultrasound. Contractions: Unable to accurately determine d/t monitors being removed for ultasound. FETUS A FHR - Baseline: 120s Monitoring: External US Variability: Moderate 6-25bpm Accelerations: 15X15 Decelerations: None FHR Category: Category I : 32.3 SIGNATURE SIGNATURE: [id number];10,[id number];[id number] SIGNATURE: 14,[id number];10,[id number];,[id number] SIGNATURE: 13,[id number];10,[id number] Signature: with User ID: [email or web address]
[2018-09-17] MEDS ORDERED: AMPICILLIN SOD INJ 1 GM VIAL ONE (03:01)
[2018-09-17] MEDS: AMPICILLIN SOD INJ 1 GM VIAL IV SCH ×2 (03:06→17:24)
--- NOTE | 2018-09-17 06:42 | L&D Progress Notes ---
PROGRESS NOTES Datetime Report Generated by CPN: 09/17/2018 06:42 PROGRESS NOTE Procedures- Other: Magnesium sulfate Plan Other: wean off Mag Vital Signs : Reviewed; Within Normal Limits Comment: Magnesium inadvertantly discontinued for approximately one hour--pump stopped. Pt started having contractions every 1-2 minutes. Mag running 2g/hr. Will reduce to 1g/hr and wean off completely. FETUS A FHR - Baseline: 120s Monitoring: External US Variability: Moderate 6-25bpm Accelerations: 15X15 Decelerations: None FHR Category: Category I : 32.4 FETUS C SIGNATURE: [id number];10,[id number];13,[id number] Signature: with User ID: [email or web address]
[2018-09-17] MEDS ORDERED: MAGNESIUM SULFATE 20 GM/500 ML RTUINJ IV PRN (06:52)
[2018-09-18] MEDS ORDERED: HYDROXYZINE PAMOATE 50 MG CAPSULE PO ONE (02:12)
[2018-09-18] MEDS ORDERED: RINGERS SOLUTION,LACTATED 1,000 ML IV ONE (02:13)
[2018-09-18] MEDS ORDERED: PENICILLIN G POTASSIUM 5,000,000 UNIT in DEXTROSE 5%-WATER 100 ML IV ONE (03:36)
[2018-09-18] MEDS ORDERED: NALBUPHINE HCL INJ 10 MG/1 ML AMPULE INJ ONE (03:36)
[2018-09-18] MEDS ORDERED: PROMETHAZINE HCL INJ 25 MG/1 ML VIAL IV ONE (03:36)
[2018-09-18] MEDS: RINGERS SOLUTION,LACTATED 1,000 ML IV PRN ×2 (03:42→15:11)
[2018-09-18] MEDS ORDERED: MISOPROSTOL 0.2 MG TABLET ONE (03:44)
[2018-09-18] MEDS ORDERED: OXYTOCIN 10 UNIT/ML VIAL ONE (03:44)
[2018-09-18] MEDS ORDERED: LIDOCAINE 1% INJ-PF (10 MG/ML) 30 ML SDV ONE (03:45)
[2018-09-18] MEDS ORDERED: PENICILLIN G-K 5 MILLION UNIT VIAL ONE ×4 (03:45→16:20)
[2018-09-18] MEDS ORDERED: OXYTOCIN/NORMAL SALINE 20 UNIT/1,000 ML RTUINJ ONE (03:45)
[2018-09-18 04:04] LABS: HEMATOCRIT 30.8 % (36.0-47.0); MEAN CORPUSCULAR HEMOGLOBIN 26.4 pg (27.0-33.4); MEAN CORPUSCULAR HGB CONC 32.4 g/dL (32.0-36.0); MEAN CORPUSCULAR VOLUME 82 fl (80-97); PLATELET COUNT 240 10^3/uL (150-450); RED BLOOD COUNT 3.77 10^6/uL (3.72-5.28); RED CELL DISTRIBUTION WIDTH 19.2 % (11.5-14.0)
[2018-09-18 04:23] LABS: ABSOLUTE LYMPHOCYTES# (MANUAL) 2.4 10^3/uL (0.5-4.7); ABSOLUTE MONOCYTES # (MANUAL) 0.8 10^3/uL (0.1-1.4); ABSOLUTE NEUTROPHILS# (MANUAL) 7.8 10^3/uL (1.7-8.2); ANISOCYTOSIS 2+; BASOPHILS % (MANUAL) 0 % (0-2); EOSINOPHILS % (MANUAL) 0 % (0-6); LYMPHOCYTES % (MANUAL) 22 % (13-45); MONOCYTES % (MANUAL) 7 % (3-13); PLATELET COMMENT ADEQUATE; POLYCHROMASIA 1+; SEGMENTED NEUTROPHILS % (MAN) 71 % (42-78); TOTAL CELLS COUNTED 100
[2018-09-18] MEDS ORDERED: EPHEDRINE SULFATE INJ 50 MG/1 ML AMPULE ONE (05:35)
[2018-09-18] MEDS ORDERED: PHENYLEPHRINE HCL INJ/PF 10 MG/1 ML SDV ONE (05:35)
[2018-09-18] MEDS ORDERED: FENTANYL/BUPIVACAINE/NS/PF 300 MCG/150 ML RTUINJ EPI ONE (05:36)
[2018-09-18] MEDS ORDERED: BUPIVACAINE HCL 0.5 % INJ/PF 30 ML SDV ONE (05:36)
[2018-09-18] MEDS ORDERED: LIDOCAINE 1.5%/EPINEPHRINE INJ-PF 30 ML SDV ONE (05:36)
[2018-09-18] MEDS ORDERED: FENTANYL CITRATE INJ/PF 100 MCG/2 ML AMPUL ONE (06:02)
[2018-09-18] MEDS: PENICILLIN G POTASSIUM 2,500,000 UNIT in DEXTROSE 5%-WATER 50 ML IV SCH ×3 (08:30→16:26)
[2018-09-18] MEDS ORDERED: ACETAMINOPHEN WITH CODEINE #3 TABLET PO PRN ×2 (19:42)
[2018-09-18] MEDS ORDERED: GLYCERIN/WITCH HAZEL LEAF 1 EACH MED..PAD TP PRN (19:42)
[2018-09-18] MEDS ORDERED: ZOLPIDEM TARTRATE 5 MG TABLET PO PRN (19:42)
[2018-09-18] MEDS ORDERED: BENZOCAINE/MENTHOL AEROSOL SPRAY 56 ML TOP PRN (19:42)
[2018-09-18] MEDS ORDERED: MAGNESIUM HYDROXIDE SUSP 30 ML UDCUP PO PRN (19:42)
[2018-09-18] MEDS ORDERED: PSEUDOEPHEDRINE HCL 30 MG TABLET PO PRN (19:42)
[2018-09-18] MEDS ORDERED: NA PHOS,M-B/NA PHOS,DI-BA (ADULT) 133 ML ENEMA PR PRN (19:42)
[2018-09-18] MEDS ORDERED: PROMETHAZINE HCL INJ 25 MG/1 ML VIAL IV PRN (19:42)
[2018-09-18] MEDS ORDERED: PROMETHAZINE HCL 25 MG TABLET PO PRN (19:42)
[2018-09-18] MEDS ORDERED: DIPH/PERTUSS(ACELL)/TETANUS VAC/PF 0.5 ML SYR (>=10YO) IM PRN (19:42)
[2018-09-18] MEDS ORDERED: OXYTOCIN/NORMAL SALINE 1,000 ML IV PRN (19:42)
[2018-09-18] MEDS ORDERED: PROMETHAZINE HCL 25 MG SUPP.RECT PR PRN (19:42)
[2018-09-18] MEDS ORDERED: MEASLES,MUMPS&RUBELLA VACC/PF 0.5 ML VIAL SUBCUT PRN (19:42)
[2018-09-18] MEDS ORDERED: DIBUCAINE 1% OINTMENT 28 GM TP PRN (19:42)
[2018-09-18] MEDS ORDERED: DIPHENHYDRAMINE HCL 25 MG CAPSULE PO PRN (19:42)
[2018-09-18] MEDS ORDERED: ACETAMINOPHEN 650 MG SUPP.RECT PR PRN (19:42)
[2018-09-18] MEDS ORDERED: IBUPROFEN 800 MG TABLET ONE (19:45)
[2018-09-18] MEDS ORDERED: HYDRALAZINE HCL INJ/PF 20 MG/1 ML SDV IV ONE (20:53)
[2018-09-18] MEDS ORDERED: HYDRALAZINE HCL INJ/PF 20 MG/1 ML SDV ONE (20:54)
[2018-09-18] MEDS: IBUPROFEN 800 MG TABLET PO SCH (22:36)
[2018-09-18] MEDS: FAMOTIDINE 20 MG TABLET PO SCH (22:37)
[2018-09-19] MEDS: IBUPROFEN 800 MG TABLET PO SCH ×3 (05:26→22:01)
--- NOTE | 2018-09-19 05:57 | Delivery Summary ---
Del Sum A-C Datetime Report Generated by N: 09/19/2018 05:57 DELIVERY PERSONNEL DELIVERY PERSONNEL: [id number] Delivery Doctor:: Shellie Nguyen MD Labor and Delivery Nurse:: Karen Dunn RNdirector financial planning Nurse:: Tosha De La Rosa RN Nursery Nurse:: Nisha Willett RN (Annotations: Data stored by [facility] on behalf of user) Additional Personnel: : Susanna Robertson RN MATERNAL INFORMATION Delivery Anesthesia: Epidural Medications After Delivery: Pitocin Bolus-Please Comment Estimated Blood Loss (ml): 200 Maternal Complications: Premature Rupture of Membranes LABOR SUMMARY EDC: 11/08/2018 00:00 No. Babies in Womb: 1 Attempted: No Labor Anesthesia: Epidural LABOR INFORMATION Reason for Induction: Not Applicable Onset of Labor: 09/18/2018 04:29 Complete Dilatation: 09/18/2018 18:46 Oxytocin: N/A Group B Beta Strep: positive Antibiotics # of Doses: 4 Antibiotics Time of Last Dose: 1626 Name of Antibiotic Given: PCN Steroids Given: Full Course; > 24 Hours before Delivery Reason Steroids Not Administered: Not Applicable MEMBRANES Membranes Rupture Method: Spontaneous Rupture of Membranes: 09/18/2018 03:30 Length of Rupture (hr): 15.35 Amniotic Fluid Color: Bloody Amniotic Fluid Amount: Moderate Amniotic Fluid Odor: Normal STAGES OF LABOR Stage 1 hr: 14 Stage 1 min: 17 Stage 2 hr: 0 Stage 2 min: 5 Stage 3 hr: 0 Stage 3 min: 4 Total Time in Labor hr: 14 Total Time in Labor min: 26 VAGINAL DELIVERY Episiotomy: None Laceration #1: None Laceration Extension #1: N/A Laceration Repair: Not Applicable Sponge Count Correct: Yes Sharps Count Correct: Yes CSECTION DELIVERY Primary Indication: N/A Secondary Indication: N/A CSection Incidence: N/A Labor: N/A Elective: N/A CSection Incision: N/A BABY A INFORMATION Delivery Date/Time: 09/18/2018 18:51 Method of Delivery: Vaginal Born in Route : No : N/A Forceps: N/A Vacuum Extraction: N/A Shoulder Dystocia : No PRESENTATION/POSITION BABY A Presentation: Cephalic Cephalic Presentation: Vertex Vertex Position: Left Occipital Anterior Breech Presentation: N/A PLACENTA INFORMATION BABY A Placenta Delivery Time : 09/18/2018 18:55 Placenta Method of Delivery: Spontaneous Placenta Status: Delivered SCORES BABY A Heart Rate 1 min: >100 bpm Resp Effort 1 min: Slow, Irregular Reflex Irritability 1 min: Grimace Muscle Tone 1 min: Some Flexion of Extremities Color 1 min: Blue/Pale SCORE 1 MIN: 5 Heart Rate 5 min: >100 bpm Resp Effort 5 min: Slow, Irregular Reflex Irritability 5 min: Cough or Sneeze or Pulls Away Muscle Tone 5 min: Some Flexion of Extremities Color 5 min: Body Warner, Extremities Blue SCORE 5 MIN: 7 INFORMATION BABY A Gestational Age at Delivery: 32.5 Gestational Status: - <34 Weeks Infant Outcome : Liveborn Infant Condition : Fair Sex: Male IDENTIFICATION BABY A Verification Date/Time: 09/18/2018 19:25 ID Band Number: [id number] Mother's Name Verified: Yes RN Verifying Infant: Artur Trent RN Additional Verifying Personnel: B. [employer] RN WEIGHT/LENGTH BABY A Infant Birthweight (gm): 2123 Weight (lb): 4 Infant Weight (oz): 11 Infant Length (in): 18.00 Length (cm): 45.72 CORD INFORMATION BABY A No. Cord Vessels: 3 Nuchal Cord : N/A Cord Blood Taken: Yes-For Storage (Mom's Blood type +) ASSESSMENT BABY A Skin to Skin: No Transferred To: NICU BABY B INFORMATION : N/A SIGNATURES Signature: with User ID: [email or web address]
[2018-09-19 08:11] LABS: HEMOGLOBIN 9.8 g/dL (12.0-15.5); MEAN CORPUSCULAR HEMOGLOBIN 26.3 pg (27.0-33.4); MEAN CORPUSCULAR HGB CONC 32.5 g/dL (32.0-36.0); MEAN CORPUSCULAR VOLUME 81 fl (80-97); PLATELET COUNT 216 10^3/uL (150-450); RED BLOOD COUNT 3.72 10^6/uL (3.72-5.28); RED CELL DISTRIBUTION WIDTH 18.9 % (11.5-14.0); WHITE BLOOD COUNT 12.9 10^3/uL (4.0-10.5)
--- NOTE | 2018-09-19 09:47 | PDOC PROGRESS REPORT ---
Subjective-OB Progress Note for:: 09/19/18 - PP Day #1, delivery at 32 wks, baby in the NICU. Pt doing well, pumping, A+ Rubella immune Physical Exam (OB) Vital Signs: Temp Pulse Resp BP Pulse Ox 98.7 F 60 16 126/76 H 100 09/19/18 08:08 09/19/18 08:08 09/19/18 08:08 09/19/18 08:08 09/19/18 08:08 Intake & Output 09/18/18 09/19/18 09/20/18 06:59 06:59 06:59 Intake Total 100 1580 Balance 100 1580 - General General Appearance: Appears well, Alert In distress: None - PIH/Pre-Eclampsia DTR's: 1 + Clonus: Negative Headache: Absent Epigastric Pain: No Visual Changes: No - Lochia Lochia Amount: Small 10-25 ml Lochia Color: Rubra/Red - Abdomen Description: Soft, Round Hernia Present: No Fundal Description: Firm, Midline Fundal Height: u/u - u/2 - Respiratory Respiratory Status: No respiratory distress - Abdominal Inspection: Normal Distension: No distension Tenderness: Nontender - Genitourinary Genitourinary Note: voiding - Extremities Upper extremity: Normal inspection Lower extremities: Normal inspection - Neurological Cognition: Normal Orientation: AAOx4 - Psychological Associated symptoms: Normal affect, Normal mood - Skin Skin Temperature: Warm Skin Moisture: Dry Objective-Diagnostic Laboratory: 09/19/18 07:38 09/19/18 07:38 WBC 12.9 H RBC 3.72 Hgb 9.8 L Hct 30.0 L MCV 81 MCH 26.3 L MCHC 32.5 RDW 18.9 H Plt Count 216 09/16/18 02:58 Vaginal/Anorectal Group B Streptococcus Culture - Final Group B Beta Streptococcus Assessment and Plan(PN) - Assessment and Plan (1) 32 weeks gestation of Is this a current diagnosis for this admission?: Yes (2) Anemia, Is this a current diagnosis for this admission?: Yes - Time Spent with Patient Time with patient: Less than 15 minutes Medications reviewed and adjusted accordingly: Yes - Disposition Anticipated Discharge: Home Within: within 24 hours
[2018-09-19] MEDS: PRENATAL VITAMIN W DHA CAPSULE PO SCH (12:22)
[2018-09-19] MEDS: DOCUSATE SODIUM 100 MG CAPSULE PO SCH ×2 (12:22→17:36)
[2018-09-19] MEDS: SENNOSIDES/DOCUSATE 8.6-50 MG 1 EACH TABLET PO SCH (12:23)
[2018-09-19] MEDS: FERROUS SULFATE 325 MG TABLET PO SCH ×3 (12:23→17:37)
[2018-09-19] MEDS: FAMOTIDINE 20 MG TABLET PO SCH ×2 (12:23→22:01)
[2018-09-20 09:10] VITALS: BP 111/68
[2018-09-20] MEDS: FERROUS SULFATE 325 MG TABLET PO SCH ×2 (09:23→09:25)
[2018-09-20] MEDS: SENNOSIDES/DOCUSATE 8.6-50 MG 1 EACH TABLET PO SCH (09:23)
[2018-09-20] MEDS: PRENATAL VITAMIN W DHA CAPSULE PO SCH (09:23)
[2018-09-20] MEDS: FAMOTIDINE 20 MG TABLET PO SCH (09:23)
[2018-09-20] MEDS: DOCUSATE SODIUM 100 MG CAPSULE PO SCH (09:23)
[2018-09-20] MEDS: IBUPROFEN 800 MG TABLET PO SCH ×2 (09:24→14:15)
--- NOTE | 2018-09-20 09:44 | PDOC DISCHARGE SUMMARY ---
Final Diagnosis Discharge Date: 09/20/18 - Final Diagnosis (1) 32 weeks gestation of Is this a current diagnosis for this admission?: Yes (2) Anemia, Is this a current diagnosis for this admission?: Yes Discharge Data - Discharge Medication Prescriptions: Ibuprofen [Motrin 800 mg Tablet] 800 mg PO Q8 #60 tablet Home Medications: Vit/Iron Fum/Folic AC [ Tablet] 1 each PO DAILY 03/17/18 Ferrous Sulfate [Iron] 325 mg PO DAILY 08/14/18 Ibuprofen [Motrin 800 mg Tablet] 800 mg PO Q8 #60 tablet 09/20/18 Reason(s) for Admission: Labor Procedures: NST, Ultrasound Intrapartum Procedure(s): Spontaneous Vaginal Delivery - Diagnosis Test Laboratory: Temp Pulse Resp BP Pulse Ox 98.0 F 63 17 111/68 100 09/20/18 07:45 09/20/18 07:45 09/20/18 07:45 09/20/18 07:45 09/20/18 07:45 09/15/18 09/16/18 09/18/18 22:30 02:40 03:55 RBC 3.85 3.77 Hgb 10.1 L 10.0 L Hct 31.3 L 30.8 L Urine Opiates Screen NEGATIVE 09/19/18 07:38 RBC 3.72 Hgb 9.8 L Hct 30.0 L Urine Opiates Screen - Discharge information/Instructions Discharge Activity: Activity As Tolerated, No Lifting Over 10 Pounds, Pelvic Rest Discharge Diet: As Tolerated, Regular Disposition: HOME, SELF-CARE Follow up with: [facility] in: 4, Weeks
== END 2018-09-20 16:57 | disposition home or self-care (01) | DRG 807 ==
LOC: LC 22:20 → LR 09-16 02:17 → 2S 09-17 15:49 → LR 09-18 03:42 → 2S 09-18 21:20
PROVIDERS: ADMIT Obstetrics & Gynecology; ATTEND Obstetrics & Gynecology
PROC: 10E0XZZ Delivery of Products of Conception, External Approach (ICD-10-PCS; principal; 2018-09-18)
PROC: 4A1HXCZ Monitoring of Products of Conception, Cardiac Rate, External Approach (ICD-10-PCS; 2018-09-18)
DX: O42.013 Preterm premature rupture of membranes, onset of labor within 24 hours of rupture, third trimester (principal); Z37.3 Twins, one liveborn and one stillborn; O90.81 Anemia of the puerperium; D64.9 Anemia, unspecified; O30.043 Twin pregnancy, dichorionic/diamniotic, third trimester; O99.824 Streptococcus B carrier state complicating childbirth; Z28.21 Immunization not carried out because of patient refusal; Z3A.32 32 weeks gestation of pregnancy
CPT/HCPCS: 36415; 59025; 76815; 80307; 81001; 84112; 85025; 85027; 86592; 86850; 86900; 86901; 87077; 87081; 88307; 94760; 96372; J0290; J0360; J0702; J2370; J2540; J2590; J3010; J3105; J3475; J3490; J7120; Q0114